=== PATIENT | male | born 1970 | race Hispanic/Latino ===

== ENCOUNTER 2022-11-18 03:55 | Emergency (ER) | payer SELFPAY ==
[2022-11-18 04:25] LABS: Absolute Lymphocytes (CBC) 1.1 K/uL (0.7-4.9); Hematocrit 43.6 % (39.6-49.0); Lymphocytes % 12.4 % (15.3-44.8); MCV 89.5 fL (80-100); MPV 9.3 fL (7.6-11.3); RBC Red Blood Cell Count 4.87 M/uL (4.33-5.43)
[2022-11-18 04:39] LABS: Potassium 3.4 mEq/L (3.5-5.1)
--- NOTE | 2022-11-18 05:46 | ER ---
Nurse's Notes 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 pt as6 admits to ETOH use and cocaine use. Coronavirus screen: At this time, the client does not indicate any symptoms associated with coronavirus-19. Ebola Screen: No symptoms or risks identified at this time. Initial Sepsis Screen: Does the patient meet any 2 criteria? No. Patient's initial sepsis screen is negative. Does the patient have a suspected source of infection? No. Patient's initial sepsis screen is negative. Risk Assessment: Do you want to hurt yourself or someone else? Patient reports no desire to harm self or others. Onset of symptoms was November 18, 2022 at 02:00. 03:58 Acuity: PEACE 3 as6 03:58 Method Of Arrival: EMS: [facility] as6 Historical: - Allergies: 03:58 No Known Allergies; as6 - Home Meds: 03:58 None [Active]; as6 - PMHx: 03:58 None; as6 - PSHx: 03:58 None; as6 - Immunization history:: Client reports having NOT received the Covid vaccine. - Social history:: Smoking status: Patient reports the use of cigarette tobacco products. Screenin:41 [facility] ED Fall Risk Assessment (Adult) Score/Fall Risk Level 0 - 2 = Low Risk. Abuse as6 screen: Denies threats or abuse. Denies injuries from another. Nutritional screening: No deficits noted. Tuberculosis screening: No symptoms or risk factors identified. Assessment: 03:59 General: Appears in no apparent distress. Behavior is calm, cooperative. Pain: Denies as6 pain. Neuro: Level of Consciousness is awake, alert, obeys commands, Oriented to person, place, time, situation, Tingling in left arm. Cardiovascular: Denies chest pain, shortness of breath, Capillary refill < 3 seconds Patient's skin is warm and dry. Respiratory: Respiratory effort is even, unlabored, Respiratory pattern is regular, symmetrical. Derm: Skin is intact, is healthy with good turgor. 05:05 Reassessment: Patient appears in no apparent distress at this time. Patient and/or as6 family updated on plan of care and expected duration. Pain level reassessed. Patient is alert, oriented x 3, equal unlabored respirations, skin warm/dry/pink. Vital Signs: 03:58 BP 131 / 85; Pulse 93; Resp 18 S; Temp 97.5(O); Pulse Ox 99% on R/A; Weight 72.57 kg as6 (R); Height 6 ft. 0 in. (R); Pain 0/10; 05:04 BP 130 / 95; Pulse 80; Resp 18 S; Pulse Ox 98% on R/A; as6 03:58 Body Mass Index 21.70 (72.57 kg, 182.88 cm) as6 03:58 Pain Scale: Adult as6 NIH Stroke Scale Scores: 05:38 NIHSS Score: 0 bs3 ED Course: 03:56 Patient arrived in ED. rv1 03:58 Nilesh Ware MD is Attending Physician. bs3 03:58 Arm band placed on. as6 04:04 Triage completed. as6 04:18 Alexys Blair, HEMANT is Primary Nurse. as6 04:19 Inserted saline lock: 20 gauge in left antecubital area, using aseptic technique. Blood as6 collected. 04:41 Bed in low position. Call light in reach. Side rails up X 1. as6 05:13 Chest Single View XRAY In Process Unspecified. EDMS 05:54 No provider procedures requiring assistance completed. IV discontinued, intact, ll3 bleeding controlled, No redness/swelling at site. Pressure dressing applied. Administered Medications: 05:16 Not Given (Physician Discretion): NS 0.9% IV 500 ml IV at bolus once ll3 Medication: 04:41 VIS not applicable for this client. as6 Outcome: 05:45 Discharge ordered by . bs3 05:54 Discharged to home ambulatory, with family. ll3 05:54 Condition: stable 05:54 Discharge instructions given to patient, Instructed on discharge instructions, follow up and referral plans. Demonstrated understanding of instructions, follow-up care. 05:55 Patient left the ED. ll3 NIH Stroke Scale - NIH Stroke Score Date: 11/18/2022 Time: 05:38 Total Score = 0 10. Dysarthria (speech clarity - read or repeat words) - 0(Normal) 11. Extinction and Inattention (visual/tactile/auditory/spatial/personal) - 0(No abnormality) 1a. Level of Consciousness (LOC) - 0(Alert) 1b. Level of Consciousness (LOC) (Month \T\ Age) - 0(Both) 1c. LOC Commands (Open \T\ Closes Eyes/Sign Painter Apprentice) - 0(Both) 2. Best Gaze (Lateral Gaze Paresis) - 0(Normal) 3. Visual Field Loss - 0(No visual loss) 4. Facial Palsy - 0(Normal) 5a. Left Arm: Motor (10-second hold) - 0(No drift) 5b. Right Arm: Motor (10-second hold) - 0(No drift) 6a. Left Leg: Motor (5-second hold - always test supine) - 0(No drift) 6b. Right Leg: Motor (5-second hold - always test supine) - 0(No drift) 7. Limb Ataxia (finger/nose \T\ heel/tamayo - test with eyes open) - 0(Absent) 8. Sensory Loss (pinprick arms/legs/face) - 0(Normal) 9. Best Language: Aphasia (description/naming/reading) - 0(No aphasia) Initials: bs3 Signatures: Dispatcher [employer] Alexys Choudhury RN RN as6 Marlyn Villegas RN RN ll3 Nilesh Ware MD MD bs3 Yolis Gaitan [facility]
--- NOTE | 2022-11-18 05:46 | EDPHYS ---
Physician Documentation [facility] Name: Anival Brooks Age: 52 yrs Sex: Male : 1970 Arrival Date: 11/18/2022 Time: 03:55 Bed 6 Private MD: ED Physician Nilesh Ware HPI: 11/18 05:38 This 52 yrs old Male presents to ER via EMS with complaints of Tingling in his bs3 left hand. 05:38 52-year-old male no significant past medical history presents with tingling in his left bs3 hand he notes that he drank alcohol tonight and used cocaine for the first time and developed tingling he seems to think that the tingling in his third fourth and fifth fingers he denies any associated weakness he denies any chest pain shortness of breath denies any nausea or vomiting this is never happened before. Historical: - Allergies: 03:58 No Known Allergies; as6 - Home Meds: 03:58 None [Active]; as6 - PMHx: 03:58 None; as6 - PSHx: 03:58 None; as6 - Immunization history:: Client reports having NOT received the Covid vaccine. - Social history:: Smoking status: Patient reports the use of cigarette tobacco products. ROS: 05:38 Constitutional: Negative for fever, chills bs3 05:38 All other systems are negative. Exam: 05:38 Constitutional: This is a well developed, well nourished patient who is awake, alert, bs3 and in no acute distress. Head/Face: Normocephalic, atraumatic. Eyes: Pupils equal round and reactive to light, extra-ocular motions intact. Lids and lashes normal. ENT: mmm, no posterior phyarngeal erythema Neck: Trachea midline, no thyromegaly, no neck stiffness Chest/axilla: Normal chest wall appearance and motion. Nontender with no deformity. No lesions are appreciated. Cardiovascular: Regular rate and rhythm with a normal S1 and S2. symmetric pulses in upper extremities Respiratory: Lungs have equal breath sounds bilaterally, clear to auscultation, no respiratory distress Abdomen/GI: Soft, non-tender, no rebound or guarding Skin: Warm, dry with normal turgor. Normal color with no rashes, no lesions, and no evidence of cellulitis. MS/ Extremity: Pulses equal, no cyanosis. Neurovascular intact. Full, normal range of motion. Neuro: Awake and alert, GCS 15, oriented to person, place, time, and situation. Cranial nerves II-XII grossly intact. Motor strength 5/5 in all extremities. Sensory grossly intact. Psych: Awake, alert, with orientation to person, place and time. Behavior, mood, and affect are within normal limits. Vital Signs: 03:58 BP 131 / 85; Pulse 93; Resp 18 S; Temp 97.5(O); Pulse Ox 99% on R/A; Weight 72.57 kg as6 (R); Height 6 ft. 0 in. (R); Pain 0/10; 05:04 BP 130 / 95; Pulse 80; Resp 18 S; Pulse Ox 98% on R/A; as6 03:58 Body Mass Index 21.70 (72.57 kg, 182.88 cm) as6 03:58 Pain Scale: Adult as6 NIH Stroke Scale Scores: 05:38 NIHSS Score: 0 bs3 MDM: 03:59 Patient medically screened. bs3 05:38 Data reviewed: vital signs, nurses notes. ED course: Patient with atypical symptoms in bs3 the setting of cocaine use an EKG was done for screening purposes and was normal sinus rhythm without ST elevations or depressions his QTc was normal his symptoms are not consistent with an aortic dissection his distribution of symptoms is isolated to the hand I do not think he has an acute CVA especially in the setting of alcohol use and cocaine use we will check electrolytes and reassess His labs were normal on reassessment he was feeling better he was counseled at length and discharged home. 11/18 03:59 Order name: CBC with Diff; Complete Time: 04:48 bs3 11/18 03:59 Order name: BMP; Complete Time: 04:48 bs3 11/18 03:59 Order name: Chest Single View XRAY bs3 11/18 03:59 Order name: EKG - Nurse/Tech; Complete Time: 04:18 bs3 Administered Medications: 05:16 Not Given (Physician Discretion): NS 0.9% IV 500 ml IV at bolus once ll3 Disposition Summary: 11/18/22 05:45 Discharge Ordered Location: Home bs3 Problem: new bs3 Symptoms: have improved bs3 Condition: Stable bs3 Diagnosis - Cocaine abuse bs3 Followup: bs3 - With: Private Physician - When: 5 - 6 days - Reason: Re-evaluation by your physician Discharge Instructions: - Discharge Summary Sheet bs3 - Cocaine Use Disorder bs3 - Alcohol Intoxication, [id number] bs3 Forms: - Medication Reconciliation Form bs3 - Thank You Letter bs3 - Antibiotic Education bs3 - Prescription Opioid Use bs3 NIH Stroke Scale - NIH Stroke Score Date: 11/18/2022 Time: 05:38 Total Score = 0 10. Dysarthria (speech clarity - read or repeat words) - 0(Normal) 11. Extinction and Inattention (visual/tactile/auditory/spatial/personal) - 0(No abnormality) 1a. Level of Consciousness (LOC) - 0(Alert) 1b. Level of Consciousness (LOC) (Month \T\ Age) - 0(Both) 1c. LOC Commands (Open \T\ Closes Eyes/Catalog Library Assistant) - 0(Both) 2. Best Gaze (Lateral Gaze Paresis) - 0(Normal) 3. Visual Field Loss - 0(No visual loss) 4. Facial Palsy - 0(Normal) 5a. Left Arm: Motor (10-second hold) - 0(No drift) 5b. Right Arm: Motor (10-second hold) - 0(No drift) 6a. Left Leg: Motor (5-second hold - always test supine) - 0(No drift) 6b. Right Leg: Motor (5-second hold - always test supine) - 0(No drift) 7. Limb Ataxia (finger/nose \T\ heel/tamayo - test with eyes open) - 0(Absent) 8. Sensory Loss (pinprick arms/legs/face) - 0(Normal) 9. Best Language: Aphasia (description/naming/reading) - 0(No aphasia) Initials: bs3 Signatures: Dispatcher [employer] Alexys Choudhury RN RN as6 Nilesh Ware MD MD bs3 Marlyn Villegas RN ll3
[2022-11-18 06:18] VITALS: TEMP 97.5
[2022-11-18 06:20] VITALS: BP 130/95; O2SAT 98
--- NOTE | 2022-11-19 19:49 | RAD REPORT ---
EXAM DESCRIPTION: RAD - Chest Single View - 11/18/2022 5:11 am CLINICAL HISTORY: Eval mediastinum COMPARISON: None. TECHNIQUE: XR CHEST 1 VIEW 11/18/2022 3:59 AM CDT FINDINGS: Cardiac silhouette is normal in size. Lungs are clear without consolidation, atelectasis, mass or edema. There is no pleural effusion. There is no pneumothorax. There are no acute osseous fin dings. IMPRESSION: Clear lungs. Electronically signed by: Bucky Yarbrough MD 11/18/2022 6:06 AM CDT Due to temporary technical issues with the PACS/Fluency reporting system, reports are being signed by the in house radiologists without review as a courtesy to insure prompt reporting. The interpreting radiologist is fully responsible for the content of the report.
--- NOTE | 2022-11-20 12:09 | EKG ---
Test Date: 2022-11-18 Test Time: 04:11:02 Senior Architect/Design Manager: MEASUREMENT RESULTS: Intervals: Rate: 88 UT: 168 QRSD: 80 QT: 384 QTc: 464 [place]: P: 76 UT: 168 QRS: -1 T: 64 INTERPRETIVE STATEMENTS: Normal sinus rhythm Normal ECG No previous ECG available for comparison Electronically Signed On 11-20-22 12:01:17 CDT by Onel Javier
== END 2022-11-18 05:55 | disposition home or self-care (01) ==
LOC: ER 03:55
DX: F14.10 Cocaine abuse, uncomplicated (principal)
CPT/HCPCS: 36415; 71045; 80048; 85025; 93005; 99284

== ENCOUNTER 2022-11-24 19:29 | Emergency (ER) | payer SELFPAY ==
[2022-11-24 19:56] LABS: Absolute Lymphocytes (CBC) 1.7 K/uL (0.7-4.9); Hematocrit 42.9 % (39.6-49.0); Lymphocytes % 22.5 % (15.3-44.8); MCV 88.5 fL (80-100); MPV 9.4 fL (7.6-11.3); RBC Red Blood Cell Count 4.85 M/uL (4.33-5.43)
[2022-11-24 19:57] LABS: Protime INR 1.04
[2022-11-24] MEDS ORDERED: MORPHINE 2 MG/ML SYR ONE (20:02)
[2022-11-24] MEDS ORDERED: NA CHLORIDE 0.9% 1,000 ML ONE (20:03)
[2022-11-24 20:14] LABS: Albumin 3.7 g/dL (3.4-5.0); Bilirubin Direct 0.2 mg/dL (0-0.2); Bilirubin Indirect, Calculated 0.4 mg/dL (0.2-0.8); Bilirubin Total 0.6 mg/dL (0.2-1.0); Magnesium 2.5 mg/dL (1.6-2.4); Potassium 3.1 mEq/L (3.5-5.1); Protein, Total 7.3 g/dL (6.4-8.2); Troponin High Sensitivity 6.9 pg/mL (<58.9)
[2022-11-24 20:16] LABS: Specific Gravity < 1.005 (1.005-1.030); Urine Bacteria None Seen /HPF (<20); Urine Bilirubin NEGATIVE (Negative); Urine Blood Negative (Negative); Urine Clarity Clear (Clear); Urine Color Colorless (Yellow); Urine Glucose NEGATIVE (Negative); Urine Protein NEGATIVE (Negative); Urine RBC <5 /HPF (None Seen); Urine Urobilinogen Normal (Normal); Urine pH 7.5 (5.0-7.0)
[2022-11-24 20:20] LABS: Barbiturates NEGATIVE (NEGATIVE); Benzodiazepines NEGATIVE (NEGATIVE); Cocaine POSITIVE (NEGATIVE); METHAMPHETAM NEGATIVE (NEGATIVE); Methadone NEGATIVE (NEGATIVE); Opiates NEGATIVE (NEGATIVE); Phencyclidine NEGATIVE (NEGATIVE); THC Cannibis NEGATIVE (NEGATIVE)
[2022-11-24] MEDS ORDERED: POTASSIUM 25 MEQ EFFERV TAB ONE (21:04)
--- NOTE | 2022-11-24 21:21 | RAD REPORT ---
EXAM DESCRIPTION: Iesha Single View11/24/2022 8:56 pm CLINICAL HISTORY: Chest pain COMPARISON: November 18, 2022 FINDINGS: Lateral costophrenic sulci are not included in the field of view and are not evaluated. The visualized lungs appear clear of acute infiltrate. The heart is normal size IMPRESSION: No acute abnormalities displayed
--- NOTE | 2022-11-24 23:37 | ER ---
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 Coronavirus screen: Vaccine status: Patient reports receiving the 2nd dose of the covid vaccine. Ebola Screen: Patient negative for fever greater than or equal to 101.5 degrees Fahrenheit, and additional compatible Ebola Virus Disease symptoms. Initial Sepsis Screen: Does the patient meet any 2 criteria? No. Patient's initial sepsis screen is negative. Does the patient have a suspected source of infection? No. Patient's initial sepsis screen is negative. Risk Assessment: Do you want to hurt yourself or someone else? Patient reports no desire to harm self or others. Care prior to arrival: Medication(s) given: ASA, 325 mg, IV initiated. 20 GA, in the left antecubital area. 19:33 Method Of Arrival: EMS: [facility] 19:33 Acuity: [facility]ACE 3 23:45 Onset of symptoms was November 24, 2022. Triage Assessment: 19:38 General: Appears uncomfortable, Behavior is calm, cooperative. Pain: Complains of pain kl in chest Pain radiates to back of neck Pain currently is 2 out of 10 on a pain scale. at worst was 8 out of 10 on a pain scale. Quality of pain is described as aching. Historical: - Allergies: 19:38 No Known Allergies; - Home Meds: 19:38 None [Active]; kl - PMHx: 19:38 None; kl - PSHx: 19:38 None; - Immunization history:: Adult Immunizations not immunized. - Social history:: Smoking status: Patient denies any tobacco usage or history of. Screenin:47 [facility] ED Fall Risk Assessment (Adult) History of falling in the last 3 months, including since admission No falls in past 3 months (0 pts) Confusion or Disorientation No (0 pts) Intoxicated or Sedated No (0 pts) Impaired Gait No (0 pts) Mobility Assist Device Used No (0 pt) Altered Elimination No (0 pt) Score/Fall Risk Level 0 - 2 = Low Risk Oriented to surroundings, Maintained a safe environment. Abuse screen: Denies threats or abuse. Nutritional screening: No deficits noted. Tuberculosis screening: No symptoms or risk factors identified. Assessment: 19:46 General: Appears uncomfortable, Behavior is calm, cooperative. Pain: Complains of pain kl in chest Pain radiates to back of neck. Neuro: No deficits noted. Cardiovascular: Rhythm is sinus rhythm. Respiratory: No deficits noted. GI: No deficits noted. No signs and/or symptoms were reported involving the gastrointestinal system. : No deficits noted. No signs and/or symptoms were reported regarding the genitourinary system. EENT: No deficits noted. No signs and/or symptoms were reported regarding the EENT system. Derm: No deficits noted. No signs and/or symptoms reported regarding the dermatologic system. 21:11 Reassessment: Patient appears in no apparent distress at this time. Patient denies pain kl at this time. Patient states feeling better. Patient states symptoms have improved. Vital Signs: 19:33 BP 119 / 85; Pulse 95; Resp 18; Temp 98.7; Pulse Ox 100% ; Weight 84 kg (M); Height 5 kl ft. 9 in. ; Pain 2/10; 21:10 BP 115 / 88; Pulse 78; Resp 18; Pulse Ox 99% on R/A; Pain 0/10; kl 23:43 BP 107 / 76; Pulse 70; Resp 15; Temp 98; Pulse Ox 100% on R/A; Pain 0/10; kl 19:33 Body Mass Index 27.35 (84.00 kg, 175.26 cm) kl 19:33 Pain Scale: Adult kl 21:10 Pain Scale: Adult kl 23:43 Pain Scale: Adult kl ED Course: 19:31 Patient arrived in ED. as6 19:38 Triage completed. kl 19:38 EKG completed in triage. Results shown to . kl 19:40 Charlie May PA is PHCP. cp 19:40 Charlie Han MD is Attending Physician. cp 19:47 Maintain EMS IV. Dressing intact. Good blood return noted. Site clean \T\ dry. Gauge \T\ kl site: 20 let ac. 19:48 Patient has correct armband on for positive identification. Bed in low position. Call kl light in reach. Side rails up X2. Client placed on continuous cardiac and pulse oximetry monitoring. NIBP monitoring applied. 19:49 Initial lab(s) drawn, by me, sent to lab. EKG done, by ED staff, reviewed by Charlie SHANE. 19:50 CPK Sent. kl 19:58 Urine collected: clean catch specimen, clear. jw7 19:59 Urinalysis W/Microscopic Sent. jw7 19:59 UDS Sent. jw7 19:59 Basic Metabolic Panel Sent. jw7 19:59 CBC with Diff Sent. jw7 19:59 LFT's Sent. jw7 19:59 Magnesium Sent. jw7 19:59 NT PRO-BNP Sent. jw7 19:59 Troponin HS Sent. jw7 20:57 XRAY Chest (1 view) In Process Unspecified. EDMS 23:44 No provider procedures requiring assistance completed. IV discontinued, intact, kl bleeding controlled, No redness/swelling at site. Pressure dressing applied. 23:45 Arm band placed on right wrist. kl Administered Medications: 19:43 Drug: NS 0.9% IV 1000 ml Route: IV; Rate: 1 bolus; Site: left antecubital; kl 20:46 Follow up: IV Status: Completed infusion; IV Intake: 1000ml kl 19:54 CANCELLED (Physician Discretion): NS 0.9% IV 1000 ml IV at 1 bolus Per protocol; 1000 cp mL bolus 20:00 Drug: morphine IVP or IV 2 mg Route: IVP; Infused Over: 4 mins; Site: left antecubital; kl 20:47 Follow up: Response: No adverse reaction; Pain is decreased kl 20:46 Drug: NS 0.9% IV 1000 ml Route: IV; Rate: 100 ml/hr; Site: left antecubital; kl 21:09 Drug: Potassium PO Effervescent Tablet 50 mEq Route: PO; kl Medication: 23:45 VIS not applicable for this client. kl Intake: 20:46 IV: 1000ml; Total: 1000ml. kl Outcome: 23:36 Discharge ordered by . cp 23:44 Discharged to home ambulatory. kl 23:44 Condition: improved 23:44 Discharge instructions given to patient, Instructed on discharge instructions, follow up and referral plans. Demonstrated understanding of instructions, follow-up care. 23:45 Patient left the ED. Signatures: Dispatcher [employer] EDND Tammie Guerrero RN RN Charlie Carias PA PA cp Slawson, Ashby, RN RN as6 Rosette Erickson7 Corrections: (The following items were deleted from the chart) 19:49 CREATINE PHOSPHOKINASE+C.LAB.BRZ drawn and sent. [facility] 19:50 BASIC METABOLIC PANEL+C.LAB.BRZ drawn and sent. [facility] 19:50 CBC+H.LAB.BRZ drawn and sent. [facility] 19:50 Troponin High Sensitivity+C.LAB.BRZ drawn and sent. [facility]
--- NOTE | 2022-11-24 23:37 | EDPHYS ---
Physician Documentation [facility] Name: Anival Brooks Age: 52 yrs Sex: Male : 1970 Arrival Date: 11/24/2022 Time: 19:29 Bed 8 Private MD: ED Physician Charlie Han HPI: 11/24 19:48 This 52 yrs old Male presents to ER via EMS with complaints of Chest Pain. cp 19:48 The patient or guardian reports chest pain that is located primarily in the anterior cp chest wall, mid chest. 19:48 Onset: today. The pain radiates to cp 19:48 Associated signs and symptoms: Pertinent negatives: abdominal pain, diaphoresis, cp dizziness, headache, lower extremity pain, lower extremity swelling, shortness of breath, vomiting, numbness, weakness. 19:48 The chest pain is described as aching. cp 19:48 Duration: The patient or guardian reports a single episode, that is still ongoing, but cp improving. Historical: - Allergies: 19:38 No Known Allergies; kl - Home Meds: 19:38 None [Active]; kl - PMHx: 19:38 None; kl - PSHx: 19:38 None; kl - Immunization history:: Adult Immunizations not immunized. - Social history:: Smoking status: Patient denies any tobacco usage or history of. ROS: 19:55 Constitutional: Negative for body aches, chills, fever, poor PO intake. cp 19:55 Eyes: Negative for injury, pain, redness, and discharge. cp 19:55 ENT: Negative for drainage from ear(s), ear pain, sore throat, difficulty swallowing, difficulty handling secretions. 19:55 Neck: Positive for pain at rest. 19:55 Cardiovascular: Positive for chest pain, Negative for edema, palpitations. 19:55 Respiratory: Negative for cough, shortness of breath, wheezing. 19:55 Abdomen/GI: Negative for abdominal pain, vomiting, diarrhea, constipation. 19:55 Back: Negative for pain at rest, pain with movement. 19:55 Neuro: Negative for altered mental status, dizziness, headache, numbness, syncope, weakness. 19:55 All other systems are negative. Exam: 19:43 ECG was reviewed by the Attending Physician. cp 20:00 Constitutional: The patient appears in no acute distress, alert, awake, cp non-diaphoretic, non-toxic, well developed, well nourished, uncomfortable. 20:00 Head/Face: Normocephalic, atraumatic. cp 20:00 Eyes: Periorbital structures: appear normal, Conjunctiva: normal, no exudate, no injection, Sclera: no appreciated abnormality, Lids and lashes: appear normal, bilaterally. 20:00 ENT: External ear(s): are unremarkable, Nose: is normal, Mouth: Lips: moist, Oral mucosa: moist, Posterior pharynx: is normal, airway is patent, no erythema, no exudate. 20:00 Neck: ROM/movement: is normal, is supple, no meningismus, no nuchal rigidity. 20:00 Chest/axilla: Inspection: normal. 20:00 Cardiovascular: Rate: normal, Rhythm: regular. 20:00 Respiratory: the patient does not display signs of respiratory distress, Respirations: normal, no use of accessory muscles, no retractions, labored breathing, is not present, Breath sounds: are clear throughout, no decreased breath sounds, no stridor, no wheezing. 20:00 Abdomen/GI: Inspection: abdomen appears normal, Palpation: abdomen is soft and non-tender, in all quadrants. 20:00 Back: pain, is absent, ROM is normal. 20:00 Neuro: Orientation: to person, place \\T\\ time. Mentation: is normal, Cerebellar function: is grossly normal, Motor: moves all fours, strength is normal, Sensation: is normal. Vital Signs: 19:33 BP 119 / 85; Pulse 95; Resp 18; Temp 98.7; Pulse Ox 100% ; Weight 84 kg (M); Height 5 kl ft. 9 in. ; Pain 2/10; 21:10 BP 115 / 88; Pulse 78; Resp 18; Pulse Ox 99% on R/A; Pain 0/10; kl 23:43 BP 107 / 76; Pulse 70; Resp 15; Temp 98; Pulse Ox 100% on R/A; Pain 0/10; kl 19:33 Body Mass Index 27.35 (84.00 kg, 175.26 cm) kl 19:33 Pain Scale: Adult kl 21:10 Pain Scale: Adult kl 23:43 Pain Scale: Adult kl MDM: 19:41 Patient medically screened. cp 20:00 Differential diagnosis: abnormal EKG, acute myocardial infarction, pericarditis, cp pleurisy, pneumonia, pneumothorax, pulmonary embolus, stable angina, thoracic aortic disection, unstable angina. 23:35 Data reviewed: vital signs, nurses notes, lab test result(s), EKG, radiologic studies, cp plain films. 23:35 Consideration of Admission/Observation Escalation of care including cp admission/observation considered. I considered the following discharge prescriptions or medication management in the emergency department Medications were administered in the Emergency Department. See MAR. 23:35 ED course: Patient denies recent use of cocaine and reports last use "days ago". cp Initial and repeat troponin negative, EKG negative for STEMI. Will discharge to home for continued monitoring. 23:35 The patient was not given aspirin in the Emergency Department. Administered by EMS. 06/ 19:42 Order name: Basic Metabolic Panel; Complete Time: 20:27 /16 20:27 Interpretation: Normal except: K 3.1. / 19:42 Order name: CBC with Diff; Complete Time: 20:27 / 19:42 Order name: LFT's; Complete Time: 20:27 /16 20:28 Interpretation: Normal except: GLOB 3.6; A/G 1.0. 06/ 19:42 Order name: Magnesium; Complete Time: 20:27 / 20:27 Interpretation: Abnormal: MG 2.5. / 19:42 Order name: NT PRO-BNP; Complete Time: 20:27 / 19:42 Order name: PT-INR; Complete Time: 20:27 / 19:42 Order name: Troponin HS; Complete Time: 20:27 /16 20:28 Interpretation: Troponin HS 6.9; Reviewed. 06/ 19:42 Order name: CPK; Complete Time: 20:27 / 19:47 Order name: Urinalysis W/Microscopic; Complete Time: 20:27 /16 20:28 Interpretation: Normal except: Urine SG < 1.005; UPH 7.5. 06/ 19:47 Order name: UDS; Complete Time: 20:27 /16 20:28 Interpretation: Abnormal: ARTHUR POSITIVE. / 22:29 Order name: Troponin High Sensitivity; Complete Time: 23:34 16 19:42 Order name: XRAY Chest (1 view); Complete Time: 22:06 /16 22:06 Interpretation: Report review. 16 19:42 Order name: EKG; Complete Time: 19:43 /16 19:43 Order name: EKG; Complete Time: 19:43 /16 19:42 Order name: Cardiac monitoring; Complete Time: 19:50 /16 19:42 Order name: EKG - Nurse/Tech; Complete Time: 19:43 /16 19:42 Order name: IV Saline Lock; Complete Time: 19:50 /16 19:42 Order name: Labs collected and sent; Complete Time: 19:50 /16 19:42 Order name: O2 Per Protocol; Complete Time: 19:50 /16 19:42 Order name: O2 Sat Monitoring; Complete Time: 19:50 /16 19:43 Order name: Cardiac monitoring; Complete Time: 19:49 16 19:43 Order name: EKG - Nurse/Tech; Complete Time: 19:49 16 19:43 Order name: IV Saline Lock; Complete Time: 19:49 16 19:43 Order name: Labs collected and sent; Complete Time: 19:49 16 19:43 Order name: O2 Per Protocol; Complete Time: 19:49 16 19:43 Order name: O2 Sat Monitoring; Complete Time: 19:49 kl EC:43 Rate is 80 beats/min. Rhythm is regular. [place] interval is normal. QRS interval is normal. cp QT interval is normal. T waves are Inverted in lead aVR. Interpreted by me. Reviewed by me. Administered Medications: 19:43 Drug: NS 0.9% IV 1000 ml Route: IV; Rate: 1 bolus; Site: left antecubital; kl 20:46 Follow up: IV Status: Completed infusion; IV Intake: 1000ml kl 19:54 CANCELLED (Physician Discretion): NS 0.9% IV 1000 ml IV at 1 bolus Per protocol; 1000 cp mL bolus 20:00 Drug: morphine IVP or IV 2 mg Route: IVP; Infused Over: 4 mins; Site: left antecubital; kl 20:47 Follow up: Response: No adverse reaction; Pain is decreased kl 20:46 Drug: NS 0.9% IV 1000 ml Route: IV; Rate: 100 ml/hr; Site: left antecubital; kl 21:09 Drug: Potassium PO Effervescent Tablet 50 mEq Route: PO; kl Disposition Summary: 11/24/22 23:36 Discharge Ordered Location: Home cp Problem: new cp Symptoms: have improved cp Condition: Stable cp Diagnosis - Cocaine use, unspecified, uncomplicated cp - Chest pain, unspecified cp Followup: cp - With: Private Physician - When: 2 - 3 days - Reason: Recheck today's complaints Discharge Instructions: - Discharge Summary Sheet cp - Nonspecific Chest Pain, Adult cp - Cocaine Use Disorder cp - Aspirin and Your Heart cp Forms: - Medication Reconciliation Form cp - Thank You Letter cp - Antibiotic Education cp - Prescription Opioid Use cp Signatures: Dispatcher [employer] EDTammie Oliva RN RN Charlie Carias PA PA cp Corrections: (The following items were deleted from the chart) 19:53 19:43 BASIC METABOLIC PANEL+C.LAB.BRZ ordered. EDMS EDMS 19:53 19:43 CBC+H.LAB.BRZ ordered. EDMS EDMS 19:53 19:43 Troponin High Sensitivity+C.LAB.BRZ ordered. EDMS EDMS 19:53 19:43 CREATINE PHOSPHOKINASE+C.LAB.BRZ ordered. EDMS EDMS 19:54 19:47 NS 0.9% IV 1000 ml IV at 1 bolus Per protocol; 1000 mL bolus ordered. cp cp 20:28 19:43 Chest Single View+RAD.RAD.BRZ ordered. EDSD EDMS 11/25 21:10 11/24 19:48 The pain does not radiate. cp cp
[2022-11-25 00:42] VITALS: BP 107/76; TEMP 98; O2SAT 100
== END 2022-11-24 23:45 | disposition home or self-care (01) ==
LOC: ER 19:29
DX: F14.90 Cocaine use, unspecified, uncomplicated (principal)
CPT/HCPCS: 36415; 71045; 80048; 80076; 80307; 81001; 82550; 83735; 83880; 84484; 85025; 85610; 93005; 96361; 96374; 99284; J2270; J7030

== ENCOUNTER 2022-11-25 23:57 | Emergency (ER) | payer SELFPAY ==
[2022-11-26] MEDS ORDERED: ASPIRIN 81 MG CHEWABLE TABLET ONE (00:31)
[2022-11-26 01:01] LABS: Absolute Lymphocytes (CBC) 1.2 K/uL (0.7-4.9); Hematocrit 41.7 % (39.6-49.0); Lymphocytes % 17.9 % (15.3-44.8); MCV 88.9 fL (80-100); MPV 9.2 fL (7.6-11.3); RBC Red Blood Cell Count 4.69 M/uL (4.33-5.43)
[2022-11-26 01:09] LABS: Protime INR 0.99
[2022-11-26 01:23] LABS: Albumin 3.7 g/dL (3.4-5.0); Bilirubin Direct 0.1 mg/dL (0-0.2); Bilirubin Indirect, Calculated 0.3 mg/dL (0.2-0.8); Bilirubin Total 0.4 mg/dL (0.2-1.0); Potassium 3.3 mEq/L (3.5-5.1); Protein, Total 6.9 g/dL (6.4-8.2); Troponin High Sensitivity 6.8 pg/mL (<58.9)
[2022-11-26] MEDS ORDERED: DIAZEPAM 5 MG TABLET ONE (02:17)
[2022-11-26] MEDS ORDERED: KETOROLAC 30 MG/ML INJ ONE (02:17)
[2022-11-26] MEDS ORDERED: ONDANSETRON 4 MG (ODT) TAB ONE (02:17)
--- NOTE | 2022-11-26 06:09 | ER ---
Nurse's Notes [facility] Name: Anival Brooks Age: 52 yrs Sex: Male : 1970 Arrival Date: 11/25/2022 Time: 23:57 Bed 14 Private MD: Diagnosis: Noncardiac chest pain, diaphoresis Presentation: 11/26 00:18 Chief complaint: Patient states: chest pain that started today. pt was seen yesterday as6 in ER for same thing but pt states today the pain is on the right side of his chest. Coronavirus screen: At this time, the client does not indicate any symptoms associated with coronavirus-19. Ebola Screen: No symptoms or risks identified at this time. Initial Sepsis Screen: Does the patient meet any 2 criteria? No. Patient's initial sepsis screen is negative. Does the patient have a suspected source of infection? No. Patient's initial sepsis screen is negative. Risk Assessment: Do you want to hurt yourself or someone else? Patient reports no desire to harm self or others. Onset of symptoms was November 26, 2022. 00:18 Method Of Arrival: Ambulatory as6 00:18 Acuity: PEACE 3 as6 Historical: - Allergies: 00:21 No Known Allergies; as6 - PMHx: 00:21 None; as6 - PSHx: 00:21 None; as6 - Immunization history:: Client reports receiving the 2nd dose of the Covid vaccine. - Social history:: Smoking status: Patient reports the use of cigarette tobacco products, smokes one-half pack cigarettes per day. - Family history:: not pertinent. Screenin:55 Abuse screen: Denies threats or abuse. Denies injuries from another. Nutritional aa9 screening: No deficits noted. Tuberculosis screening: No symptoms or risk factors identified. 06:20 [facility] ED Fall Risk Assessment (Adult) History of falling in the last 3 months, aa9 including since admission No falls in past 3 months (0 pts) Confusion or Disorientation No (0 pts) Intoxicated or Sedated No (0 pts) Impaired Gait No (0 pts) Mobility Assist Device Used No (0 pt) Altered Elimination No (0 pt) Score/Fall Risk Level 0 - 2 = Low Risk Oriented to surroundings, Maintained a safe environment. Assessment: 01:55 General: Appears in no apparent distress. comfortable, Behavior is calm, cooperative. aa9 Cardiovascular: Patient's skin is warm and dry. Rhythm is regular. Respiratory: Airway is patent Respiratory effort is even, unlabored. Derm: Skin is intact, is healthy with good turgor. 02:12 Pain: Complains of pain in chest Pain currently is 4 out of 10 on a pain scale. Pain aa9 began gradually. 03:15 Reassessment: Patient appears in no apparent distress at this time. Patient and/or aa9 family updated on plan of care and expected duration. Pain level reassessed. 04:16 Reassessment: Patient appears in no apparent distress at this time. Patient and/or aa9 family updated on plan of care and expected duration. Pain level reassessed. 05:13 Reassessment: Patient appears in no apparent distress at this time. Patient denies pain aa9 at this time. Patient states feeling better. 06:21 Reassessment: Patient appears in no apparent distress at this time. Patient and/or aa9 family updated on plan of care and expected duration. Pain level reassessed. Patient states symptoms have improved. Vital Signs: 00:18 BP 116 / 71; Pulse 110; Resp 18 S; Temp 99(TE); Pulse Ox 97% on R/A; Weight 72.57 kg as6 (R); Height 6 ft. 0 in. (R); Pain 4/10; 01:54 BP 104 / 75; Pulse 63; Resp 17; Pulse Ox 99% on R/A; aa9 00:18 Body Mass Index 21.70 (72.57 kg, 182.88 cm) as6 00:18 Pain Scale: Adult as6 ED Course: 00:00 Patient arrived in ED. ja2 00:13 Paramjit Wells MD is Attending Physician. sp4 00:21 Triage completed. as6 00:21 Arm band placed on. as6 00:54 Inserted saline lock: 20 gauge in right forearm, using aseptic technique. Blood as7 collected. 01:03 NT PRO-BNP Sent. as7 01:03 CBC with Automated Diff Sent. as7 01:03 Protime (+INR) Sent. as7 01:03 Basic Metabolic Panel Sent. as7 01:03 Liver (Hepatic) Function Sent. as7 01:03 Troponin High Sensitivity Sent. as7 01:04 Alcohol Level Sent. as7 01:04 Urine Drug Screen Sent. as7 01:31 Chest Single View In Process Unspecified. EDMS 01:49 Sarah Lebron, RN is Primary Nurse. aa9 03:00 Patient has correct armband on for positive identification. Placed in gown. Bed in low aa9 position. Side rails up X2. 03:00 Client placed on continuous cardiac and pulse oximetry monitoring. NIBP monitoring aa9 applied. 04:40 Troponin High Sensitivity Sent. as7 06:19 No provider procedures requiring assistance completed. IV discontinued, intact, aa9 bleeding controlled, No redness/swelling at site. Pressure dressing applied. Patient maintains SpO2 saturation greater than 95% on room air. Administered Medications: 00:24 Drug: Aspirin PO Chewable Tablet 324 mg Route: PO; as6 02:11 Drug: Diazepam PO 5 mg Route: PO; aa9 04:28 Follow up: Response: No adverse reaction aa9 02:11 Drug: Ketorolac IVP 30 mg Route: IVP; Site: right forearm; aa9 04:28 Follow up: Response: No adverse reaction aa9 02:11 Drug: Ondansetron PO 4 mg Route: PO; aa9 04:28 Follow up: Response: No adverse reaction aa9 Medication: 06:20 VIS not applicable for this client. aa9 Outcome: 06:08 Discharge ordered by . sp4 06:19 Discharged to home ambulatory. aa9 06:19 Condition: stable 06:19 Discharge instructions given to patient, Instructed on discharge instructions, follow up and referral plans. medication usage, Demonstrated understanding of instructions, follow-up care, medications, Prescriptions given X 1. 06:21 Patient left the ED. aa9 Signatures: Dispatcher [employer] EDMS Philomena Gomez Ashby, HEMANT MARCOS as6 Sarah Lebron, RN RN aa9 Zulema Rodriguez as7 Paramjit Wells MD MD sp4 Corrections: (The following items were deleted from the chart) 01:32 01:04 PROTIME (+INR)+COAG.LAB.BRZ drawn and sent. EDMS 01:33 01:03 BASIC METABOLIC PANEL+C.LAB.BRZ drawn and sent. EDMS :33 01:03 CBC+H.LAB.BRZ drawn and sent. as7 EDMS :33 01:03 HEPATIC FUNCTION+C.LAB.BRZ drawn and sent. MS : 01:03 PROBNP+C.LAB.BRZ drawn and sent. MS : 01:04 Troponin High Sensitivity+C.LAB.BRZ drawn and sent. MS
--- NOTE | 2022-11-26 06:09 | EDPHYS ---
Physician Documentation [facility] Name: Anival Brooks Age: 52 yrs Sex: Male : 1970 Arrival Date: 11/25/2022 Time: 23:57 Bed 14 Private MD: ED Physician Paramjit Wells HPI: 11/26 00:13 This 52 yrs old Male presents to ER via Unassigned with complaints of Chest sp4 Pain. 05:52 52-year-old male no significant past medical history except for cocaine use disorder sp4 presents with complaint of diaphoresis and chest discomfort. . Historical: - Allergies: 00:21 No Known Allergies; as6 - PMHx: 00:21 None; as6 - PSHx: 00:21 None; as6 - Immunization history:: Client reports receiving the 2nd dose of the Covid vaccine. - Social history:: Smoking status: Patient reports the use of cigarette tobacco products, smokes one-half pack cigarettes per day. - Family history:: not pertinent. ROS: 05:52 Constitutional: Negative for fever, chills, and weight loss, Eyes: Negative for injury, sp4 pain, redness, and discharge, ENT: Negative for injury, pain, and discharge, Neck: Negative for injury, pain, and swelling, Cardiovascular: Negative for palpitations, and edema, positive for chest pain Respiratory: Negative for shortness of breath, cough, wheezing, and pleuritic chest pain, Abdomen/GI: Negative for abdominal pain, nausea, vomiting, diarrhea, and constipation, Back: Negative for injury and pain, : Negative for injury, bleeding, discharge, and swelling, MS/Extremity: Negative for injury and deformity, Skin: Negative for injury, rash, and discoloration, Neuro: Negative for headache, weakness, numbness, tingling, and seizure, Psych: Negative for depression, anxiety, Allergy/Immunology: Negative for hives, rash, and allergies Endocrine: Negative for neck swelling, polydipsia, polyuria, polyphagia, and weight changes Hematologic/Lymphatic: Negative for swollen nodes, abnormal bleeding, and unusual bruising Exam: 05:52 Constitutional: This is a well developed, well nourished patient who is awake, alert, sp4 and in no acute distress. Head/Face: Normocephalic, atraumatic. Eyes: Pupils equal round and reactive to light, extra-ocular motions intact. Lids and lashes normal. Conjunctiva and sclera are not injected. Cornea within normal limits. Periorbital areas with no swelling, redness, or edema. ENT: Nares patent. No nasal discharge, no septal abnormalities noted. Tympanic membranes are normal and external auditory canals are clear. Oropharynx with no redness, swelling, or masses, exudates, or evidence of obstruction, uvula midline. Mucous membranes moist. Neck: Trachea midline, no thyromegaly or masses palpated, and no cervical lymphadenopathy. Supple, full range of motion without nuchal rigidity, or vertebral point tenderness. Chest/axilla: Normal chest wall appearance and motion. Nontender with no deformity. No lesions are appreciated. Cardiovascular: Regular rate and rhythm with a normal S1 and S2. No gallops, murmurs, or rubs. Normal PMI, no JVD. No pulse deficits. Respiratory: Lungs have equal breath sounds bilaterally, clear to auscultation and percussion. No rales, rhonchi or wheezes noted. No increased work of breathing, no retractions or nasal flaring. Abdomen/GI: Soft, non-tender, with normal bowel sounds. No distension or tympany. No guarding or rebound. No evidence of tenderness throughout. Back: No spinal tenderness. No costovertebral tenderness. Skin: Warm, dry with normal turgor. Normal color with no rashes, no lesions, and no evidence of cellulitis. MS/ Extremity: Pulses equal, no cyanosis. Neurovascular intact. Full, normal range of motion. Neuro: Awake and alert, GCS 15, oriented to person, place, time, and situation. Cranial nerves II-XII grossly intact. Motor strength 5/5 in all extremities. Sensory grossly intact. Psych: Awake, alert, with orientation to person, place and time. Behavior, mood, and affect are within normal limits 05:52 ECG was reviewed by the Attending Physician. Initial EKG 0039 normal sinus rhythm at a sp4 rate of 94. Otherwise normal EKG Vital Signs: 00:18 BP 116 / 71; Pulse 110; Resp 18 S; Temp 99(TE); Pulse Ox 97% on R/A; Weight 72.57 kg as6 (R); Height 6 ft. 0 in. (R); Pain 4/10; 01:54 BP 104 / 75; Pulse 63; Resp 17; Pulse Ox 99% on R/A; aa9 00:18 Body Mass Index 21.70 (72.57 kg, 182.88 cm) as6 00:18 Pain Scale: Adult as6 MDM: 00:15 Patient medically screened. sp4 06:05 Differential diagnosis: acute myocardial infarction, acute pericarditis, anxiety, chest sp4 wall pain, myocarditis, pancreatitis. HEART Score: History: Slightly Suspicious (0), ECG: Normal (0), Age: > 45 and < 65 years (1), Risk Factors: No Risk Factors Known (0), Troponin: < or = 1 x Normal Limit (0), Total Score = 1. The patient was given aspirin in the Emergency Department. Data reviewed: vital signs, nurses notes, old medical records, lab test result(s), EKG, radiologic studies, plain films. Consideration of Admission/Observation Escalation of care including admission/observation considered. ED course: Patient's work-up is unremarkable, troponin x2 is negative, EKG x2 normal, patient stable for discharge home. Patient denies any cocaine use at home today or yesterday. . 06 00:15 Order name: Alcohol Level; Complete Time: 06:01 sp4 11/26 00:59 Order name: Basic Metabolic Panel; Complete Time: 06:01 EDAK 11/26 00:59 Order name: Liver (Hepatic) Function; Complete Time: 06:01 EDMS 11/26 00:59 Order name: Troponin High Sensitivity; Complete Time: 06:01 EDMS 11/26 00:59 Order name: NT PRO-BNP; Complete Time: 06:01 EDMS 11/26 00:59 Order name: CBC with Automated Diff; Complete Time: 06:01 EDMS 11/26 00:59 Order name: Protime (+INR); Complete Time: 06:01 EDMS 11/26 04:23 Order name: Troponin High Sensitivity; Complete Time: 06:01 sb4 11/26 00:57 Order name: Chest Single View EDAK 11/26 00:15 Order name: EKG; Complete Time: 01:03 sp4 11/26 00:15 Order name: Cardiac monitoring; Complete Time: 01:55 sp4 11/26 00:15 Order name: EKG - Nurse/Tech; Complete Time: 00:54 sp4 11/26 00:15 Order name: IV Saline Lock; Complete Time: 00:54 sp4 11/26 00:15 Order name: Labs collected and sent; Complete Time: 00:54 sp4 11/26 00:15 Order name: O2 Per Protocol; Complete Time: 01:55 sp4 11/26 00:15 Order name: O2 Sat Monitoring; Complete Time: :55 sp4 11/26 04:23 Order name: EKG - Nurse/Tech; Complete Time: 04:31 sb4 EC:52 Rate is 94 beats/min. Rhythm is regular, Normal Sinus Rhythm. QRS [place] is Normal. [place] sp4 interval is normal. QRS interval is normal. QT interval is normal. T waves are Normal. No ST changes noted. Clinical impression: Normal ECG. Interpreted by me. Administered Medications: 00:24 Drug: Aspirin PO Chewable Tablet 324 mg Route: PO; as6 02:11 Drug: Diazepam PO 5 mg Route: PO; aa9 04:28 Follow up: Response: No adverse reaction aa9 02:11 Drug: Ketorolac IVP 30 mg Route: IVP; Site: right forearm; aa9 04:28 Follow up: Response: No adverse reaction aa9 02:11 Drug: Ondansetron PO 4 mg Route: PO; aa9 04:28 Follow up: Response: No adverse reaction aa9 Disposition Summary: 11/26/22 06:08 Discharge Ordered Location: Home sp4 Problem: new sp4 Symptoms: are resolved sp4 Condition: Stable sp4 Diagnosis - Noncardiac chest pain, diaphoresis sp4 Followup: sp4 - With: Private Physician - When: 7 - 10 days - Reason: Recheck today's complaints Discharge Instructions: - Discharge Summary Sheet sp4 - Nonspecific Chest Pain, Adult, [place] sp4 Prescriptions: - Valium 5 mg Oral Tablet - take 1 tablet by ORAL route every 12 hours As needed; 12 tablet; Refills: 0, sp4 Product Selection Permitted Signatures: Dispatcher [employer] Alexys Choudhury RN RN as6 Sarah Lebron RN RN aa9 Lata Reilly, PAGerry PAGerry sb4 Paramjit Wells MD MD sp4 Corrections: (The following items were deleted from the chart) 01:12 01:02 Chest Single View+RAD.RAD.BRZ ordered. EDMS EDMS 01:32 01:02 PROTIME (+INR)+COAG.LAB.BRZ ordered. EDMS EDMS :33 01:02 BASIC METABOLIC PANEL+C.LAB.BRZ ordered. EDMS EDMS :33 01:02 CBC+H.LAB.BRZ ordered. EDMS EDMS :33 01:02 HEPATIC FUNCTION+C.LAB.BRZ ordered. EDMS EDMS : 01:02 PROBNP+C.LAB.BRZ ordered. EDMS EDMS :33 01:02 Troponin High Sensitivity+C.LAB.BRZ ordered. EDMS EDMS
[2022-11-26 06:40] VITALS: TEMP 99
[2022-11-26 06:46] VITALS: BP 104/75; O2SAT 99
--- NOTE | 2022-11-27 14:25 | RAD REPORT ---
EXAM DESCRIPTION: RAD - Chest Single View - 11/26/2022 1:29 am CLINICAL HISTORY: The patient is 52 years old and is Male; chest pain TECHNIQUE: Frontal view of the chest. COMPARISON: No relevant prior studies available. FINDINGS: Lungs: Unremarkable. No consolidation. Pleural space: Unremarkable. No pneumothorax. Heart: Unremarkable. Mediastinum: Unremarkable. Bones/joints: Unremarkable. IMPRESSION: No acute findings in the chest. Electronically signed by: Rip Ceballos MD 11/26/2022 2:13 AM CDT Due to temporary technical issues with the PACS/Fluency reporting system, reports are being signed by the in house radiologist without review as a courtesy to ensure prompt reporting. The interpreting r adiologist is fully responsible for the content of the report.
--- NOTE | 2022-11-27 17:51 | EKG ---
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
== END 2022-11-26 06:21 | disposition home or self-care (01) ==
LOC: ER 23:57
DX: R07.89 Other chest pain (principal); R61 Generalized hyperhidrosis
CPT/HCPCS: 36415; 71045; 80048; 80076; 82077; 83880; 84484; 85025; 85610; 93005; 96374; 99285; Q0162

== ENCOUNTER 2022-11-27 22:46 | Emergency (ER) | payer SELFPAY ==
[2022-11-27 23:12] LABS: Hematocrit 44.1 % (39.6-49.0); Lymphocytes % 16.3 % (15.3-44.8); MCV 89.4 fL (80-100); MPV 9.5 fL (7.6-11.3); RBC Red Blood Cell Count 4.93 M/uL (4.33-5.43)
[2022-11-27 23:23] LABS: Magnesium 2.2 mg/dL (1.6-2.4); Potassium 3.5 mEq/L (3.5-5.1)
--- NOTE | 2022-11-27 23:37 | ER ---
Nurse's Notes [facility] Name: Anival Brooks Age: 52 yrs Sex: Male : 1970 Arrival Date: 11/27/2022 Time: 22:46 Bed 7 Private MD: Diagnosis: Palpitations Presentation: 11/27 22:47 Chief complaint: Patient states: left arm numbness began 2 hours seen here on 16th and kl 17th for similar complaints reports has not used cocaine for 15 days admitted to [address] [place] [address] this evening. Coronavirus screen: Vaccine status: Patient reports being unvaccinated. Ebola Screen: Patient negative for fever greater than or equal to 101.5 degrees Fahrenheit, and additional compatible Ebola Virus Disease symptoms. Initial Sepsis Screen: Does the patient meet any 2 criteria? No. Patient's initial sepsis screen is negative. Does the patient have a suspected source of infection? No. Patient's initial sepsis screen is negative. Risk Assessment: Do you want to hurt yourself or someone else?. Onset of symptoms was November 27, 2022 at 20:30. 22:47 Method Of Arrival: Ambulatory 22:47 Acuity: PEACE 3 kl Triage Assessment: 22:50 General: Appears in no apparent distress. Behavior is anxious. General: Smells of alcohol. Pain: Denies pain. Historical: - Allergies: 22:50 No Known Allergies; kl - Home Meds: 22:50 None [Active]; kl - PMHx: 22:50 None; kl - PSHx: 22:50 None; kl - Immunization history:: Adult Immunizations not immunized. - Social history:: Smoking status: Patient reports the use of cigarette tobacco products. Screenin:47 [facility] ED Fall Risk Assessment (Adult) History of falling in the last 3 months, ha1 including since admission No falls in past 3 months (0 pts) Confusion or Disorientation No (0 pts) Intoxicated or Sedated No (0 pts) Impaired Gait No (0 pts) Mobility Assist Device Used No (0 pt) Altered Elimination No (0 pt) Score/Fall Risk Level 0 - 2 = Low Risk Oriented to surroundings, Maintained a safe environment, Educated pt \T\ family on fall prevention, incl call for assistance when getting out of bed. Abuse screen: Denies threats or abuse. Denies injuries from another. Nutritional screening: No deficits noted. Tuberculosis screening: No symptoms or risk factors identified. Assessment: 22:47 General: Appears comfortable, Behavior is calm, cooperative. Pain: Complains of pain in ha1 chest Pain radiates to left arm Pain currently is 4 out of 10 on a pain scale. Quality of pain is described as pressure. Neuro: Level of Consciousness is awake, alert, obeys commands, Oriented to person, place, time, situation. Cardiovascular: Heart tones S1 S2 present Patient's skin is warm and dry. Rhythm is sinus rhythm. Respiratory: Airway is patent Respiratory effort is even, unlabored, Respiratory pattern is regular, symmetrical. GI: No signs and/or symptoms were reported involving the gastrointestinal system. : No signs and/or symptoms were reported regarding the genitourinary system. Musculoskeletal: Circulation, motion, and sensation intact. Range of motion: intact in all extremities. 23:45 Reassessment: Patient and/or family updated on plan of care and expected duration. Pain ha1 level reassessed. Patient is alert, oriented x 3, equal unlabored respirations, skin warm/dry/pink. Patient states symptoms have improved. Vital Signs: 22:47 BP 127 / 94; Pulse 94; Resp 18; Temp 98.8(O); Pulse Ox 96% on R/A; Weight 94.5 kg; kl Height 5 ft. 11 in. ; Pain 0/10; 23:00 BP 124 / 83; Pulse 89; Resp 16; Pulse Ox 95% ; ha1 11/28 00:02 BP 116 / 79; Pulse 90; Resp 19; Pulse Ox 99% on R/A; 1 11/27 22:47 Body Mass Index 29.06 (94.50 kg, 180.34 cm) 11/27 22:47 Pain Scale: Adult ED Course: 11/27 22:47 Patient arrived in ED. jb4 22:47 Patient has correct armband on for positive identification. Bed in low position. Call ha1 light in reach. Side rails up X 1. 22:47 Arm band placed on right wrist. ha1 22:48 Liss Sierra FNP-C is PHCP. kb 22:48 Clifton Aquino MD is Attending Physician. kb 22:50 Triage completed. 22:57 Alexys Blair, HEMANT is Primary Nurse. as6 22:57 Inserted saline lock: 20 gauge in right forearm, using aseptic technique. Blood as6 collected. 22:59 XRAY Chest (1 view) In Process Unspecified. EDMS 11/28 00:03 No provider procedures requiring assistance completed. IV discontinued, intact, ha1 bleeding controlled, No redness/swelling at site. Pressure dressing applied. Administered Medications: No medications were administered Medication: 00:03 VIS not applicable for this client. ha1 Outcome: 11/27 23:37 Discharge ordered by MD. robert 11/28 00:03 Discharged to home ambulatory. ha1 Condition: stable Discharge instructions given to patient, Instructed on discharge instructions, follow up and referral plans. Demonstrated understanding of instructions, follow-up care. 00:04 Patient left the ED. ha1 Signatures: Dispatcher [employer] EDID Liss Sierra, MARKETING ANALYTICS LEAD-C MARKETING [employer]NALYT[employer] LEAD-Tammie Santos, RN RN Shan Thompson RN RN jb4 Alexys Blair RN RN as6 Marquita Smiley RN RN ha1
--- NOTE | 2022-11-27 23:37 | EDPHYS ---
Physician Documentation [facility] Name: Anival Brooks Age: 52 yrs Sex: Male : 1970 Arrival Date: 11/27/2022 Time: 22:46 Bed 7 Private MD: ED Physician Clifton Aquino HPI: 11/27 23:39 This 52 yrs old Male presents to ER via Ambulatory with complaints of kb palpitations, left hand numbness. 23:39 The patient presents with a history of heart racing. Context: The symptoms occur at kb rest. Onset: The symptoms/episode began/occurred 2 hour(s) ago. Duration: The patient or guardian reports a single episode, that is still ongoing. Modifying factors: The symptoms are aggravated by nothing. The symptoms are alleviated by nothing. Associated signs and symptoms: Pertinent positives: nausea, numbness to left hand, Pertinent negatives: chest pain, fever. Severity of symptoms: At their worst the symptoms were mild in the emergency department the symptoms are unchanged. The patient has experienced similar episodes in the past. The patient has been recently seen at the [facility] Emergency Department. Pt reports he had dinner and four beers in [place] and when he got back into [facility] he started having palpitations, slight nausea and left hand numbness. States he had these symptoms 2 days ago as well and was seen here for this. States he has not done any cocaine in 15 days. Historical: - Allergies: 22:50 No Known Allergies; kl - Home Meds: 22:50 None [Active]; kl - PMHx: 22:50 None; kl - PSHx: 22:50 None; kl - Immunization history:: Adult Immunizations not immunized. - Social history:: Smoking status: Patient reports the use of cigarette tobacco products. ROS: 23:37 Constitutional: Negative for fever, chills, and weight loss. kb 23:37 Cardiovascular: Positive for palpitations. 23:37 Abdomen/GI: Positive for nausea, Negative for abdominal pain, vomiting, diarrhea, constipation. 23:37 Neuro: Positive for numbness, of the left hand. 23:37 All other systems are negative. Exam: 23:03 Constitutional: This is a well developed, well nourished patient who is awake, alert, kb and in no acute distress. Head/Face: Normocephalic, atraumatic. ENT: Moist Mucous membranes Cardiovascular: Regular rate and rhythm with a normal S1 and S2. No gallops, murmurs, or rubs. No pulse deficits. Respiratory: Respirations even and unlabored. No increased work of breathing. Talking in full sentences Abdomen/GI: Soft, non-tender. No distention Skin: Warm, dry with normal turgor. Normal color. MS/ Extremity: Pulses equal, no cyanosis. Neurovascular intact. Full, normal range of motion. Neuro: Awake and alert, GCS 15, oriented to person, place, time, and situation. Moves all extremities. Normal gait. 23:03 ECG was reviewed by the Attending Physician. Vital Signs: 22:47 BP 127 / 94; Pulse 94; Resp 18; Temp 98.8(O); Pulse Ox 96% on R/A; Weight 94.5 kg; kl Height 5 ft. 11 in. ; Pain 0/10; 23:00 BP 124 / 83; Pulse 89; Resp 16; Pulse Ox 95% ; ha1 11/28 00:02 BP 116 / 79; Pulse 90; Resp 19; Pulse Ox 99% on R/A; ha1 11/27 22:47 Body Mass Index 29.06 (94.50 kg, 180.34 cm) 11/27 22:47 Pain Scale: Adult kl MDM: 11/27 22:48 Patient medically screened. kb 23:38 Data reviewed: vital signs, nurses notes. Management of patient was discussed with the kb following: Dr Aquino. Counseling: I had a detailed discussion with the patient and/or guardian regarding: the historical points, exam findings, and any diagnostic results supporting the discharge/admit diagnosis, lab results, radiology results, the need for outpatient follow up, a family practitioner, to return to the emergency department if symptoms worsen or persist or if there are any questions or concerns that arise at home. 23:38 Differential diagnosis: arrythmia, dehydration, stress disorder. ED course: Pt is kb nontoxic in appearance, tolerating po intake, in no distress. States he is feeling better. Stable for discharge home. . 11/27 22:50 Order name: Basic Metabolic Panel; Complete Time: 23:35 kb 11/27 22:50 Order name: CBC with Diff; Complete Time: 23:22 kb 11/27 22:50 Order name: Magnesium; Complete Time: 23:35 kb 11/27 22:50 Order name: Troponin HS; Complete Time: 23:35 kb 11/27 22:50 Order name: XRAY Chest (1 view) kb 11/27 22:50 Order name: EKG; Complete Time: 22:50 kb 11/27 22:50 Order name: Cardiac monitoring; Complete Time: 23:04 kb 11/27 22:50 Order name: EKG - Nurse/Tech; Complete Time: 23:04 kb 11/27 22:50 Order name: IV Saline Lock; Complete Time: 22:57 kb 11/27 22:50 Order name: Labs collected and sent; Complete Time: 22:57 kb 11/27 22:50 Order name: O2 Per Protocol; Complete Time: :57 kb 11/27 22:50 Order name: O2 Sat Monitoring; Complete Time: 22:57 kb EC:03 Rate is 84 beats/min. Rhythm is regular. QRS [place] is Normal. CT interval is normal at kb 158 msec. QRS interval is normal at 78 msec. QT interval is normal at 439 msec. Administered Medications: No medications were administered Disposition: 11/28 02:42 Co-signature as Attending Physician, Clifton Aquino MD I reviewed the patient's care rn provided by the Advanced Practice Provider and agree with the diagnosis and treatment plan. Disposition Summary: 11/27/22 23:37 Discharge Ordered Location: Home kb Condition: Stable kb Diagnosis - Palpitations kb Followup: kb - With: Emergency Department - When: As needed - Reason: Worsening of condition Followup: kb - With: Private Physician - When: 2 - 3 days - Reason: Recheck today's complaints, Continuance of care, Re-evaluation by your physician Discharge Instructions: - Discharge Summary Sheet kb - Palpitations, [id number] kb Forms: - Medication Reconciliation Form kb - Thank You Letter kb - Antibiotic Education kb - Prescription Opioid Use kb Signatures: Dispatcher [employer] Liss Collins FNP-C FNP-Tammie Santos, RN Clifton Hicks MD MD rn
[2022-11-28 00:29] VITALS: TEMP 98.8
[2022-11-28 00:45] VITALS: BP 116/79; O2SAT 99
--- NOTE | 2022-11-28 17:47 | RAD REPORT ---
EXAM DESCRIPTION: RAD - Chest Single View - 11/27/2022 10:57 pm CLINICAL HISTORY: PALPITATIONS TECHNIQUE: AP chest COMPARISON: November 26 FINDINGS: CHEST: Heart: The cardiomediastinal silhouette is within normal limits. Lungs: No focal consolidation. Mediastinum: Unremarkable Pleura: No appreciable effusion. No pneumothorax. Bones: Intact IMPRESSION: No acute cardiopulmonary disease. Electronically signed by: Hammad Wise MD 11/27/2022 11:22 PM CDT Due to temporary technical issues with the PACS/Fluency reporting system, reports are being signed by the in house radiologists without review as a courtesy to insure prompt reporting. The interpreting radiologist is fully responsible for the content of the report.
--- NOTE | 2022-11-29 19:14 | EKG ---
Test Date: 2022-11-27 Test Time: 22:59:23 Clothing Room Supervisor: MEASUREMENT RESULTS: Intervals: Rate: 84 NV: 158 QRSD: 78 QT: 372 QTc: 439 [place]: P: 87 NV: 158 QRS: -18 T: 65 INTERPRETIVE STATEMENTS: Normal sinus rhythm Normal ECG Compared to ECG 11/26/2022 04:50:58 Sinus bradycardia no longer present Atrial premature complex(es) no longer present Electronically Signed On 11-29-22 19:10:42 CDT by Ammon Morales
== END 2022-11-28 00:04 | disposition home or self-care (01) ==
LOC: ER 22:46
DX: R00.2 Palpitations (principal)
CPT/HCPCS: 36415; 71045; 80048; 83735; 84484; 85025; 93005; 99284

== ENCOUNTER 2022-12-10 00:36 | Emergency (ER) | payer SELFPAY ==
[2022-12-10 01:11] LABS: Absolute Lymphocytes (CBC) 1.1 K/uL (0.7-4.9); Hematocrit 41.6 % (39.6-49.0); Lymphocytes % 22.8 % (15.3-44.8); MCV 88.5 fL (80-100); MPV 9.4 fL (7.6-11.3)
[2022-12-10] MEDS ORDERED: LORazepam 2 MG/ML VIAL ONE (01:25)
[2022-12-10] MEDS ORDERED: NA CHLORIDE 0.9% 1,000 ML ONE (01:25)
[2022-12-10 01:32] LABS: Albumin 3.5 g/dL (3.4-5.0); Bilirubin Direct 0.1 mg/dL (0-0.2); Bilirubin Indirect, Calculated 0.3 mg/dL (0.2-0.8); Bilirubin Total 0.4 mg/dL (0.2-1.0); Protein, Total 6.7 g/dL (6.4-8.2); Troponin High Sensitivity 5.2 pg/mL (<58.9)
--- NOTE | 2022-12-10 04:07 | ER ---
Nurse's Notes [facility] Name: Anival Brooks Age: 52 yrs Sex: Male : 1970 Arrival Date: 12/10/2022 Time: 00:36 Bed 3 Private MD: Diagnosis: Cocaine abuse;Chest pain, unspecified;Premature atrial contractions, heart palpitations, alcohol abuse Presentation: 12/10 00:41 Chief complaint: EMS states: initially called for pt reporting heat exhaustion. Upon jb4 arrival pt began to report chest pain that radiates to the left arm. Pt reports working outside for the past several days, having 5 beers today, and using cocaine. was given 4x 81mg ASA. BGL 168, sinus tach with pvc on monitor. Coronavirus screen: At this time, the client does not indicate any symptoms associated with coronavirus-19. Ebola Screen: No symptoms or risks identified at this time. Initial Sepsis Screen: Does the patient meet any 2 criteria? No. Patient's initial sepsis screen is negative. Does the patient have a suspected source of infection? No. Patient's initial sepsis screen is negative. Risk Assessment: Do you want to hurt yourself or someone else? Patient reports no desire to harm self or others. Onset of symptoms was December 10, 2022. Transition of care: patient was not received from another setting of care. 00:41 Method Of Arrival: EMS: [facility] 00:41 Acuity: [facility] 3 jb4 Historical: - Allergies: 00:45 No Known Allergies; jb4 - Home Meds: 00:45 None [Active]; jb4 - PMHx: 00:45 None; jb4 - PSHx: 00:45 None; jb4 - Immunization history:: Adult Immunizations up to date. - Social history:: Smoking status: Patient denies any tobacco usage or history of. Patient uses alcohol, street drugs, cocaine. - Family history:: not pertinent. Screenin:16 [facility] ED Fall Risk Assessment (Adult) History of falling in the last 3 months, kd3 including since admission No falls in past 3 months (0 pts) Confusion or Disorientation No (0 pts) Intoxicated or Sedated No (0 pts) Impaired Gait No (0 pts) Mobility Assist Device Used No (0 pt) Altered Elimination No (0 pt) Score/Fall Risk Level 0 - 2 = Low Risk Maintained a safe environment. Abuse screen: Denies threats or abuse. Denies injuries from another. Nutritional screening: No deficits noted. Tuberculosis screening: No symptoms or risk factors identified. Assessment: 01:00 General: Appears in no apparent distress. comfortable, Behavior is calm, cooperative, jb4 appropriate for age. Pain: Complains of pain in chest Pain radiates to left arm Pain currently is 3 out of 10 on a pain scale. Neuro: Level of Consciousness is awake, alert, obeys commands, Oriented to person, situation. Cardiovascular: Patient's skin is warm and dry. Respiratory: Airway is patent Respiratory effort is even, unlabored, Respiratory pattern is regular, symmetrical. GI: No signs and/or symptoms were reported involving the gastrointestinal system. : No signs and/or symptoms were reported regarding the genitourinary system. EENT: No signs and/or symptoms were reported regarding the EENT system. Derm: Skin is intact, Skin is pink, warm \T\ dry. Musculoskeletal: Circulation, motion, and sensation intact. Range of motion: intact in all extremities. 02:18 Reassessment: Pt resting in bed with eyes closed, no s/s of pain or distress noted. jb4 respirations are even and unlabored. 03:21 Reassessment: Patient appears in no apparent distress at this time. No changes from jb4 previously documented assessment. Patient and/or family updated on plan of care and expected duration. Pain level reassessed. Vital Signs: 00:41 BP 119 / 82; Pulse 92; Resp 17; Temp 98.6(O); Pulse Ox 99% on R/A; Weight 37.19 kg (M); jb4 Pain 3/10; 02:19 BP 103 / 75; Pulse 86; Resp 16; Pulse Ox 95% on R/A; jb4 03:21 BP 107 / 76; Pulse 84; Resp 16; Pulse Ox 96% on R/A; jb4 04:15 BP 99 / 77; Pulse 81; Resp 16; Pulse Ox 100% on R/A; kd3 00:41 Pain Scale: Adult jb4 ED Course: 00:41 Patient arrived in ED. jb4 00:41 Paramjit Wells MD is Attending Physician. sp4 00:45 Triage completed. jb4 00:45 Arm band placed on right wrist. jb4 01:01 Magnolia Andersen, RN is Primary Nurse. kd3 01:17 XRAY Chest (1 view) In Process Unspecified. EDMS 04:16 Patient has correct armband on for positive identification. kd3 04:16 No provider procedures requiring assistance completed. IV discontinued, intact, kd3 bleeding controlled, No redness/swelling at site. Pressure dressing applied. Administered Medications: 01:13 Not Given (Given by EMSs): Aspirin PO Chewable Tablet 324 mg PO once; 81 mg tablets x 4 jb4 01:14 Not Given (Patient Refused): Ondansetron IVP 4 mg IVP once; over 2 minutes jb4 01:22 Drug: Ativan IVP 2 mg Route: IVP; Site: left antecubital; jb4 04:17 Follow up: Response: No adverse reaction; Anxiety decreased kd3 01:22 Drug: NS 0.9% IV 1000 ml Route: IV; Rate: 1 bolus; Site: left antecubital; jb4 04:17 Follow up: IV Status: Completed infusion kd3 Medication: 04:16 VIS not applicable for this client. kd3 Outcome: 04:06 Discharge ordered by . sp4 04:16 Discharged to home ambulatory. kd3 04:16 Condition: stable 04:16 Discharge instructions given to patient, Instructed on discharge instructions, follow up and referral plans. Demonstrated understanding of instructions, follow-up care. 04:18 Patient left the ED. kd3 Signatures: Dispatcher [employer] EDMS Shan Parker RN RN jb4 Magnolia Andersen RN RN kd3 Paramjit Wells MD MD sp4
--- NOTE | 2022-12-10 04:07 | EDPHYS ---
Physician Documentation [facility] Name: Anival Brooks Age: 52 yrs Sex: Male : 1970 Arrival Date: 12/10/2022 Time: 00:36 Bed 3 Private MD: ED Physician Paramjit Wells HPI: 12/10 00:41 This 52 yrs old Male presents to ER via Unassigned with complaints of chest sp4 pain . 03:57 52-year-old male with history of cocaine abuse who has visited here several times for sp4 chest pain and palpitations presents with EMS for complaint of dehydration, chest pain, and palpitations.. 03:57 Patient states he felt like he was having heat exhaustion, patient did admit to sp4 drinking 5 beers prior to presentation and doing some cocaine . Historical: - Allergies: 00:45 No Known Allergies; jb4 - Home Meds: 00:45 None [Active]; jb4 - PMHx: 00:45 None; jb4 - PSHx: 00:45 None; jb4 - Immunization history:: Adult Immunizations up to date. - Social history:: Smoking status: Patient denies any tobacco usage or history of. Patient uses alcohol, street drugs, cocaine. - Family history:: not pertinent. ROS: 04:00 Constitutional: Negative for fever, chills, and weight loss, positive for fatigue and sp4 alcohol consumption Eyes: Negative for injury, pain, redness, and discharge, ENT: Negative for injury, pain, and discharge, Neck: Negative for injury, pain, and swelling, Cardiovascular: Negative for edema, positive for chest pain and palpitations Respiratory: Negative for shortness of breath, cough, wheezing, and pleuritic chest pain, Abdomen/GI: Negative for abdominal pain, nausea, vomiting, diarrhea, and constipation, Back: Negative for injury and pain, : Negative for injury, bleeding, discharge, and swelling, MS/Extremity: Negative for injury and deformity, Skin: Negative for injury, rash, and discoloration, Neuro: Negative for headache, weakness, numbness, tingling, and seizure, Psych: Negative for depression, anxiety, Allergy/Immunology: Negative for hives, rash, and allergies Endocrine: Negative for neck swelling, polydipsia, polyuria, polyphagia, and weight changes Hematologic/Lymphatic: Negative for swollen nodes, abnormal bleeding, and unusual bruising Exam: 04:00 Constitutional: This is a well developed, well nourished patient who is awake, alert, sp4 and in no acute distress. Head/Face: Normocephalic, atraumatic. Eyes: Pupils equal round and reactive to light, extra-ocular motions intact. Lids and lashes normal. Conjunctiva and sclera are not injected. Cornea within normal limits. Periorbital areas with no swelling, redness, or edema. ENT: Nares patent. No nasal discharge, no septal abnormalities noted. Tympanic membranes are normal and external auditory canals are clear. Oropharynx with no redness, swelling, or masses, exudates, or evidence of obstruction, uvula midline. Mucous membranes moist. Neck: Trachea midline, no thyromegaly or masses palpated, and no cervical lymphadenopathy. Supple, full range of motion without nuchal rigidity, or vertebral point tenderness. Chest/axilla: Normal chest wall appearance and motion. Nontender with no deformity. No lesions are appreciated. Cardiovascular: Regular rate and rhythm with a normal S1 and S2. No gallops, murmurs, or rubs. Normal PMI, no JVD. No pulse deficits. Respiratory: Lungs have equal breath sounds bilaterally, clear to auscultation and percussion. No rales, rhonchi or wheezes noted. No increased work of breathing, no retractions or nasal flaring. Abdomen/GI: Soft, non-tender, with normal bowel sounds. No distension or tympany. No guarding or rebound. No evidence of tenderness throughout. Back: No spinal tenderness. No costovertebral tenderness. Skin: Warm, dry with normal turgor. Normal color with no rashes, no lesions, and no evidence of cellulitis. MS/ Extremity: Pulses equal, no cyanosis. Neurovascular intact. Full, normal range of motion. Neuro: Awake and alert, GCS 15, oriented to person, place, time, and situation. Cranial nerves II-XII grossly intact. Motor strength 5/5 in all extremities. Sensory grossly intact. Psych: Awake, alert, with orientation to person, place and time. Behavior, mood, and affect are within normal limits 04:00 ECG was reviewed by the Attending Physician. Normal sinus rhythm, EKG time 0109, normal sinus rhythm at the rate of 88 with some sinus arrhythmia. There is also some premature atrial complexes Vital Signs: 00:41 BP 119 / 82; Pulse 92; Resp 17; Temp 98.6(O); Pulse Ox 99% on R/A; Weight 37.19 kg (M); jb4 Pain 3/10; 02:19 BP 103 / 75; Pulse 86; Resp 16; Pulse Ox 95% on R/A; jb4 03:21 BP 107 / 76; Pulse 84; Resp 16; Pulse Ox 96% on R/A; jb4 04:15 BP 99 / 77; Pulse 81; Resp 16; Pulse Ox 100% on R/A; kd3 00:41 Pain Scale: Adult jb4 MDM: 00:42 Patient medically screened. sp4 04:00 ED course: EXAM: XR Chest, 1 View CLINICAL HISTORY: CHEST PAIN TECHNIQUE: Frontal view sp4 of the chest. COMPARISON: XR Chest dated 11/27/2022 FINDINGS: Lungs: Unremarkable. No consolidation. Pleural space: Unremarkable. No pneumothorax. Heart: Unremarkable. No cardiomegaly. Mediastinum: Unremarkable. Bones/joints: Unremarkable. IMPRESSION: No acute disease . 04:04 Differential Diagnosis altered mental status, Polysubstance abuse, noncardiac chest sp4 pain, heat exhaustion, dehydration. Data reviewed: vital signs, nurses notes, EMS record, old medical records, lab test result(s), cardiac enzymes, CBC, electrolytes, hepatic panel, EKG, radiologic studies, plain films. Consideration of Admission/Observation Escalation of care including admission/observation considered. ED course: There is mild hypokalemia potassium 3.0 otherwise normal work-up, no sign of dehydration or renal failure. Patient is known for his cocaine use and has presented here several times for chest pain associated with cocaine use. We have advised patient to discontinue use of alcohol and cocaine or any other recreational substances. He is stable for discharge home.. 12/10 00:42 Order name: Basic Metabolic Panel; Complete Time: 03:54 sp4 12/10 00:42 Order name: CBC with Diff; Complete Time: 03:54 sp4 12/10 00:42 Order name: LFT's; Complete Time: 03:54 sp4 12/10 00:42 Order name: NT PRO-BNP; Complete Time: 03:54 sp4 12/10 00:42 Order name: PT-INR; Complete Time: 03:54 4 12/10 00:42 Order name: Troponin HS; Complete Time: 03:54 4 12/10 00:42 Order name: XRAY Chest (1 view) 4 12/10 00:42 Order name: EKG; Complete Time: 00:44 sp4 12/10 00:42 Order name: Cardiac monitoring; Complete Time: 01:14 4 12/10 00:42 Order name: EKG - Nurse/Tech; Complete Time: :14 4 12/10 00:42 Order name: IV Saline Lock; Complete Time: :14 sp4 12/10 00:42 Order name: Labs collected and sent; Complete Time: : 4 12/10 00:42 Order name: O2 Per Protocol; Complete Time: : 4 12/10 00:42 Order name: O2 Sat Monitoring; Complete Time: :4 EC:00 Rate is 86 beats/min. Rhythm is regular, Sinus Rhythm with PACs. QRS [place] is Normal. RI sp4 interval is normal. QRS interval is normal. QT interval is normal. T waves are Normal. No ST changes noted. Clinical impression: No evidence of ischemia. Interpreted by me. Administered Medications: 01:13 Not Given (Given by EMSs): Aspirin PO Chewable Tablet 324 mg PO once; 81 mg tablets x 4 jb4 01:14 Not Given (Patient Refused): Ondansetron IVP 4 mg IVP once; over 2 minutes jb4 01:22 Drug: Ativan IVP 2 mg Route: IVP; Site: left antecubital; jb4 04:17 Follow up: Response: No adverse reaction; Anxiety decreased kd3 01:22 Drug: NS 0.9% IV 1000 ml Route: IV; Rate: 1 bolus; Site: left antecubital; jb4 04:17 Follow up: IV Status: Completed infusion kd3 Disposition Summary: 12/10/22 04:06 Discharge Ordered Location: Home sp4 Problem: new sp4 Symptoms: have improved sp4 Condition: Stable sp4 Diagnosis - Cocaine abuse sp4 - Chest pain, unspecified sp4 - Premature atrial contractions, heart palpitations, alcohol abuse sp4 Followup: sp4 - With: Private Physician - When: 7 - 10 days - Reason: Recheck today's complaints Discharge Instructions: - Discharge Summary Sheet sp4 - Nonspecific Chest Pain, Adult, [id number] sp4 Forms: - [email or web address] sp4 Signatures: Dispatcher [employer] Shan Farmer RN RN jb4 Magnolia Andersen RN RN kd3 Paramjit Wells MD MD sp4
[2022-12-10 04:24] VITALS: TEMP 98.6
[2022-12-10 04:29] VITALS: BP 99/77; O2SAT 100
--- NOTE | 2022-12-10 11:17 | EKG ---
Test Date: 2022-12-10 Test Time: 01:09:08 [employer] Operator: FRANCK MEASUREMENT RESULTS: Intervals: Rate: 86 LA: 164 QRSD: 82 QT: 380 QTc: 454 [place]: P: 71 LA: 164 QRS: 31 T: 52 INTERPRETIVE STATEMENTS: Sinus rhythm with premature atrial complexes Otherwise normal ECG Compared to ECG 11/27/2022 22:59:23 Atrial premature complex(es) now present Electronically Signed On 12-10-22 11:16:15 CDT by Ammon Morales
--- NOTE | 2022-12-10 22:16 | RAD REPORT ---
EXAM DESCRIPTION: RAD - Chest Single View - 12/10/2022 1:15 am CLINICAL HISTORY: CHEST PAIN TECHNIQUE: Frontal view of the chest. COMPARISON: XR Chest dated 11/27/2022 FINDINGS: Lungs: Unremarkable. No consolidation. Pleural space: Unremarkable. No pneumothorax. Heart: Unremarkable. No cardiomegaly. Mediastinum: Unremarkable. Bones/joints: Unremarkable. IMPRESSION: No acute disease. Electronically signed by: Brissa Orozco MD 12/10/2022 1:33 AM CDT Due to temporary technical issues with the PACS/Fluency reporting system, reports are being signed by the in house radiologists without review as a courtesy to insure prompt reporting. The interpreting radiologist is fully responsible for the content of the report.
== END 2022-12-10 04:18 | disposition home or self-care (01) ==
LOC: ER 00:36
DX: F14.10 Cocaine abuse, uncomplicated (principal); F10.10 Alcohol abuse, uncomplicated; I49.3 Ventricular premature depolarization; R00.2 Palpitations
CPT/HCPCS: 36415; 71045; 80048; 80076; 83880; 84484; 85025; 85610; 93005; 96361; 96374; 99284; J7030